=== PATIENT | male | born 1945 | race Caucasian/White ===

== ENCOUNTER → 2020-07-20 | Outpatient (CLI) | payer MEDICARE, OTHER ==
[2020-07-20 14:53] LABS: HEMOGLOBIN 15.1 gm/dl (14.0-17.5); RED BLOOD COUNT 4.9 M/UL (4.20-5.50); WHITE BLOOD COUNT 9.6 K/UL (4.5-11.0)
== END ==
LOC: LAB 14:15
PROVIDERS: Ophthalmology
DX: H47.019 Ischemic optic neuropathy, unspecified eye (principal)
CPT/HCPCS: 36415; 85025; 85652; 86140